=== PATIENT | female | born 1995 | race Caucasian/White ===

== ENCOUNTER 2017-12-17 05:44 | Emergency (ER) | payer MEDICAID ==
[~2017-12-17] VITALS: Ht 165.1 cm; Wt 59.1 kg
[2017-12-17 08:23] VITALS: BP 99/65
[2017-12-17] MEDS ORDERED: ACETAMINOPHEN/CODEINE 300-30 MG TABLET PO ONE (08:30)
[2017-12-17] MEDS ORDERED: IBUPROFEN 600 MG TABLET PO ONE (08:30)
== END 2017-12-17 09:09 | disposition home or self-care (01) ==
LOC: EMS 05:46
DX: S62.346A Nondisplaced fracture of base of fifth metacarpal bone, right hand, initial encounter for closed fracture (principal); S50.11XA Contusion of right forearm, initial encounter; S80.12XA Contusion of left lower leg, initial encounter; S05.11XA Contusion of eyeball and orbital tissues, right eye, initial encounter; S80.212A Abrasion, left knee, initial encounter; Y04.0XXA Assault by unarmed brawl or fight, initial encounter; Y93.89 Activity, other specified; Y92.59 Other trade areas as the place of occurrence of the external cause; Y99.8 Other external cause status
CPT/HCPCS: 70450; 70486; 72125; 99284

== ENCOUNTER 2018-03-26 14:36 | Emergency (ER) | payer MEDICAID, OTHER ==
[~2018-03-26] VITALS: Ht 154.9 cm; Wt 56.8 kg
[2018-03-26] MEDS ORDERED: KETOROLAC TROMETHAMINE 10 MG TABLET PO ONE (15:45)
[2018-03-26 18:36] VITALS: BP 126/78
== END 2018-03-26 18:59 | disposition home or self-care (01) ==
LOC: EMS 14:37
DX: S70.11XA Contusion of right thigh, initial encounter (principal); S09.90XA Unspecified injury of head, initial encounter; G44.209 Tension-type headache, unspecified, not intractable; V89.9XXA Person injured in unspecified vehicle accident, initial encounter; Y93.39 Activity, other involving climbing, rappelling and jumping off; Y92.89 Other specified places as the place of occurrence of the external cause; Y99.8 Other external cause status
CPT/HCPCS: 70450; 72125

== ENCOUNTER 2020-01-26 19:51 | Emergency (ER) | payer SELFPAY ==
[~2020-01-26] VITALS: Ht 162.6 cm; Wt 59.1 kg
[2020-01-26] MEDS ORDERED: GLUCAGON,HUMAN RECOMBINANT 1 MG VIAL IVP ONE (21:00)
[2020-01-26] MEDS ORDERED: ONDANSETRON HCL 4 MG/2 ML VIAL IVP ONE (21:00)
[2020-01-26 21:33] LABS: BASOPHILS % (AUTO) 0.3 % (0.0-2.0); EOSINOPHILS % (AUTO) 1.5 % (1.0-6.0); HEMATOCRIT 40.3 % (36-46); HEMOGLOBIN 13.6 g/dL (12.0-16.0); LYMPHOCYTES # (AUTO) 2.1 K/uL (1.0-4.8); LYMPHOCYTES % (AUTO) 26.1 % (22.0-44.0); MEAN CORPUSCULAR HEMOGLOBIN 31.4 pg (26.0-34.0); MEAN CORPUSCULAR HGB CONC 33.8 G/dL (31.0-37.0); MEAN CORPUSCULAR VOLUME 93 fL (80-100); MONOCYTES # (AUTO) 0.6 K/uL (0.1-1.0); MONOCYTES % (AUTO) 7.7 % (2.0-9.0); NEUTROPHILS # (AUTO) 5.1 K/uL (1.8-7.7); NEUTROPHILS % (AUTO) 64.4 % (40.0-70.0); PLATELET COUNT (AUTO) 327 K/uL (150-450); RED BLOOD CELL COUNT(AUTO) 4.33 MIL/uL (4.00-5.20); RED CELL DISTRIBUTION WIDTH 12.9 % (11.5-14.5)
[2020-01-26 21:45] LABS: ANION GAP 9 mmol/L (8-16); CARBON DIOXIDE 27 mmol/L (22-29); CHLORIDE 104 mmol/L (98-107); CREATININE 0.61 mg/dL (0.60-1.30); GLOMERULAR FILTR. RATE CALC > 60 mL/min (>60); GLUCOSE,RANDOM 86 mg/dL (70-110); POTASSIUM 3.8 mmol/L (3.5-5.1); SODIUM SERUM 140 mmol/L (136-145); UREA NITROGEN, BLOOD 12 mg/dL (7-18)
[2020-01-26 21:56] LABS: ALANINE AMINOTRANSFERASE 52 U/L (12-78); ALBUMIN 3.5 g/dL (3.4-5.0); ALKALINE PHOSPHATASE 91 U/L (46-116); ASPARTATE AMINOTRANSFERASE 26 U/L (15-37); BILIRUBIN,TOTAL 0.2 mg/dL (0.1-1.0); HCG,QUANTITATIVE 1 mIU/mL (0-6); TOTAL PROTEIN, SERUM 7.1 g/dL (6.4-8.2)
[2020-01-26 22:15] VITALS: BP 102/59
== END 2020-01-26 22:29 | disposition home or self-care (01) ==
LOC: EMS 19:51
DX: T18.128A Food in esophagus causing other injury, initial encounter (principal); X58.XXXA Exposure to other specified factors, initial encounter; Y93.89 Activity, other specified; Y92.89 Other specified places as the place of occurrence of the external cause; Y99.8 Other external cause status
CPT/HCPCS: 36415; 80053; 81025; 84702; 85025; 96374; 96375; 99284; J1610; J2405